=== PATIENT | female | born 1990 | race Caucasian/White ===

== ENCOUNTER 2017-09-19 19:58 | Inpatient (IN) | payer MEDICAID, OTHER ==
[2017-09-19] MEDS: KETOROLAC 15 MG INJ IV (21:28)
[2017-09-19] MEDS: ONDANSETRON 4 MG INJ IV (21:28)
[2017-09-19] MEDS: morphine 4 MG/ML VIAL IV (21:28)
[2017-09-19] MEDS: BELLADONNA/PHENOBARBITAL TAB PO (21:29)
[2017-09-19] MEDS: PANTOPRAZOLE 40 MG INJ IV (21:29)
[2017-09-19] MEDS: SOD CHLORIDE 0.9% 1,000 ML IV (21:38)
[2017-09-19 21:45] LABS: ADD MAN DIFF? NO
[2017-09-19 21:47] LABS: BASOPHIL # 0.1 10^3/ul (0.0-0.1); BASOPHILS % 0.4 % (0.0-2.0); EOSINOPHILS % 0.1 % (0.0-7.0); HEMATOCRIT 40.8 % (37.0-47.0); LYMPHOCYTES % 12.5 % (15.0-51.0); MEAN CORPUSCULAR HEMOGLOBIN 24.6 pg (29.0-33.0); MEAN CORPUSCULAR HGB CONC 31.9 g/dl (32.0-37.0); MEAN CORPUSCULAR VOLUME 77.1 fl (82.0-101.0); MEAN PLATELET VOLUME 10.4 fl (7.4-10.4); MONOCYTE # 0.9 10^3/ul (0.3-0.9); MONOCYTES % 5.9 % (0.0-11.0); NEUTROPHIL # 12.7 10^3/ul (1.6-7.5); NEUTROPHILS % 80.5 % (39.0-77.0); PLATELET COUNT 427 10^3/UL (140-415); RED BLOOD COUNT 5.29 10^6/ul (4.20-5.40); RED CELL DISTRIBUTION WIDTH 13.8 % (11.5-14.5)
[2017-09-19 21:47] LABS: WHITE BLOOD COUNT 15.8 10^3/ul (4.8-10.8)
[2017-09-19 22:01] LABS: ADD UMIC YES; UR ASCORBIC ACID NEGATIVE (NEGATIVE); UR BACTERIA FEW /HPF (NONE SEEN); UR BILIRUBIN (Dip) NEGATIVE (NEGATIVE); UR BLOOD (Dip) NEGATIVE (NEGATIVE); UR CLARITY SLIGHTLY CLOUDY (CLEAR); UR COLOR YELLOW (YELLOW); UR GLUCOSE (Dip) NEGATIVE (NEGATIVE); UR KETONES (Dip) 1+ mg/dL (NEGATIVE); UR LEUKOCYTE ESTERASE (Dip) NEGATIVE Leu/ul (NEGATIVE); UR MUCUS MODERATE /HPF (NONE SEEN); UR NITRITE (Dip) NEGATIVE (NEGATIVE); UR RBC 4 /HPF (0-5); UR SPECIFIC GRAVITY (Dip) 1.026 (1.003-1.030); UR SQUAMOUS EPITHELIAL CELL FEW /HPF (FEW); UR TOTAL PROTEIN (Dip) 1+ mg/dl (NEGATIVE); UR UROBILINOGEN (Dip) 1+ mg/dL (NEGATIVE); UR WBC 2 /HPF (0-5)
[2017-09-19 22:05] LABS: ALANINE AMINOTRANSFERASE 84 IU/L (13-69); ALBUMIN 4.7 g/dl (3.3-4.9); ALKALINE PHOSPHATASE 97 IU/L (42-121); ANION GAP 17 (8-16); ASPARTATE AMINO TRANSFERASE 171 IU/L (15-46); BILIRUBIN,INDIRECT 0.3 mg/dl (0-1.1); BILIRUBIN,TOTAL 0.3 mg/dl (0.2-1.3); BLOOD UREA NITROGEN 19 mg/dl (7-20); CALCIUM 9.6 mg/dl (8.4-10.2); CARBON DIOXIDE 22 mmol/L (21-31); CHLORIDE 107 mmol/L (97-110); GLUCOSE 131 mg/dl (70-220); POTASSIUM 3.3 mmol/L (3.5-5.1); SODIUM 143 mmol/L (135-144); TOTAL PROTEIN 8.3 g/dl (6.1-8.1)
[2017-09-19 22:25] LABS: LIPASE 3279 U/L (23-300)
[2017-09-19] MEDS: LACTATED RINGER'S 1,000 ML IV (23:04)
[2017-09-20] MEDS ORDERED: BISACODYL (EC) 5 MG TAB PO (06:00)
[2017-09-20] MEDS ORDERED: ONDANSETRON 4 MG INJ IV (06:00)
[2017-09-20] MEDS ORDERED: HYDROmorphONE 1 MG/ML SYG IV (06:00)
[2017-09-20] MEDS ORDERED: NACL 0.9% 3 ML SYG IV (06:00)
[2017-09-20] MEDS ORDERED: DOCUSATE SODIUM 100 MG CAP PO (06:00)
[2017-09-20] MEDS: SOD CHLORIDE 0.9% 1,000 ML IV ×5 (06:16→23:15)
[2017-09-20] MEDS ORDERED: HYDROmorphONE 0.5 MG/0.5 ML SYG IV (06:28)
[2017-09-20] MEDS: POTASSIUM CHLORIDE 40 MEQ in SOD CHLORIDE 0.9% 1,000 ML IV ×3 (08:43→18:12)
[2017-09-20 11:48] LABS: HAAIG REFLEX REFLEX FILED
[2017-09-20 12:42] LABS: HEPATITIS B SURFACE ANTIGEN NEGATIVE (NEGATIVE)
[2017-09-20 13:00] LABS: HEPATITIS B CORE ANTIBODY NEGATIVE (NEGATIVE); HEPATITIS C VIRAL ANTIBODY NEGATIVE (NEGATIVE)
[2017-09-20] MEDS: POTASSIUM CHLORIDE 100 ML IVPB (13:14)
[2017-09-21] MEDS: SOD CHLORIDE 0.9% 1,000 ML IV ×4 (04:09→20:15)
[2017-09-21 04:56] LABS: ADD MAN DIFF? NO
[2017-09-21 04:59] LABS: WHITE BLOOD COUNT 7.1 10^3/ul (4.8-10.8)
[2017-09-21 04:59] LABS: BASOPHIL # 0.1 10^3/ul (0.0-0.1); BASOPHILS % 0.7 % (0.0-2.0); EOSINOPHILS # 0.2 10^3/ul (0.0-0.5); EOSINOPHILS % 2.8 % (0.0-7.0); HEMATOCRIT 35.3 % (37.0-47.0); HEMOGLOBIN 10.9 g/dl (12.0-16.0); LYMPHOCYTES # 3.2 10^3/ul (0.8-2.9); LYMPHOCYTES % 44.4 % (15.0-51.0); MEAN CORPUSCULAR HEMOGLOBIN 24.3 pg (29.0-33.0); MEAN CORPUSCULAR HGB CONC 30.9 g/dl (32.0-37.0); MEAN CORPUSCULAR VOLUME 78.8 fl (82.0-101.0); MONOCYTE # 0.5 10^3/ul (0.3-0.9); MONOCYTES % 7.2 % (0.0-11.0); NEUTROPHIL # 3.2 10^3/ul (1.6-7.5); NEUTROPHILS % 44.5 % (39.0-77.0); PLATELET COUNT 342 10^3/UL (140-415); RED BLOOD COUNT 4.48 10^6/ul (4.20-5.40); RED CELL DISTRIBUTION WIDTH 14.2 % (11.5-14.5)
[2017-09-21 05:18] LABS: LIPASE 237 U/L (23-300)
[2017-09-21 05:26] LABS: ALBUMIN/GLOBULIN RATIO 1.06; ANION GAP 10 (8-16); BILIRUBIN,TOTAL 0.4 mg/dl (0.2-1.3); CHOL/HDL RATIO 3.1 RATIO; LDL CHOLESTEROL,CALCULATED 68 mg/dl
[2017-09-21 05:28] LABS: ALANINE AMINOTRANSFERASE 76 IU/L (13-69); ALBUMIN 3.3 g/dl (3.3-4.9); ALKALINE PHOSPHATASE 61 IU/L (42-121); ASPARTATE AMINO TRANSFERASE 30 IU/L (15-46); BILIRUBIN,INDIRECT 0.4 mg/dl (0-1.1); BLOOD UREA NITROGEN 8 mg/dl (7-20); CALCIUM 8.3 mg/dl (8.4-10.2); CARBON DIOXIDE 21 mmol/L (21-31); CHLORIDE 113 mmol/L (97-110); CHOLESTEROL 128 mg/dl (100-200); CREATININE 0.58 mg/dl (0.44-1.00); GLUCOSE 83 mg/dl (70-220); HDL CHOLESTEROL 41 mg/dl (33-83); MAGNESIUM 1.9 mg/dl (1.7-2.5); POTASSIUM 3.8 mmol/L (3.5-5.1); SODIUM 140 mmol/L (135-144); TOTAL PROTEIN 6.4 g/dl (6.1-8.1); TRIGLYCERIDES 97 mg/dl (0-149)
[2017-09-21 05:41] LABS: HEMOGLOBIN A1C 5.4 % (0-5.9)
[2017-09-21 06:09] LABS: THYROID STIMULATING HORMONE 0.964 MIU/L (0.465-4.680)
[2017-09-21] MEDS: PIPER-TAZO 3.375 GM IV (PMX) 100 ML IVPB (11:49)
[2017-09-21] MEDS: ACETAMINOPHEN 325 MG TAB PO (19:54)
[2017-09-22] MEDS: SOD CHLORIDE 0.9% 1,000 ML IV ×3 (02:49→13:00)
[2017-09-22 05:23] LABS: ADD MAN DIFF? NO
[2017-09-22 05:24] LABS: BASOPHIL # 0.1 10^3/ul (0.0-0.1); BASOPHILS % 0.7 % (0.0-2.0); EOSINOPHILS # 0.2 10^3/ul (0.0-0.5); EOSINOPHILS % 2.9 % (0.0-7.0); HEMOGLOBIN 11.6 g/dl (12.0-16.0); LYMPHOCYTES % 39.5 % (15.0-51.0); MEAN CORPUSCULAR HEMOGLOBIN 24.6 pg (29.0-33.0); MEAN CORPUSCULAR HGB CONC 31.4 g/dl (32.0-37.0); MEAN CORPUSCULAR VOLUME 78.4 fl (82.0-101.0); MEAN PLATELET VOLUME 10.2 fl (7.4-10.4); MONOCYTE # 0.6 10^3/ul (0.3-0.9); MONOCYTES % 7.3 % (0.0-11.0); NEUTROPHIL # 3.7 10^3/ul (1.6-7.5); NEUTROPHILS % 49.1 % (39.0-77.0); PLATELET COUNT 340 10^3/UL (140-415); RED BLOOD COUNT 4.72 10^6/ul (4.20-5.40); RED CELL DISTRIBUTION WIDTH 13.9 % (11.5-14.5)
[2017-09-22 05:24] LABS: WHITE BLOOD COUNT 7.5 10^3/ul (4.8-10.8)
[2017-09-22 05:56] LABS: ANION GAP 11 (8-16); BLOOD UREA NITROGEN 9 mg/dl (7-20); CALCIUM 8.4 mg/dl (8.4-10.2); CARBON DIOXIDE 21 mmol/L (21-31); CHLORIDE 113 mmol/L (97-110); CREATININE 0.56 mg/dl (0.44-1.00); GLUCOSE 87 mg/dl (70-220); LIPASE 196 U/L (23-300); POTASSIUM 3.8 mmol/L (3.5-5.1); SODIUM 141 mmol/L (135-144)
== END 2017-09-22 16:20 | disposition home or self-care (01) | DRG 439 ==
LOC: FTE 19:58 → MS3 09-20 03:59 → MS1 09-20 09:45
DX: K85.10 Biliary acute pancreatitis without necrosis or infection (principal); Z68.41 Body mass index [BMI] 40.0-44.9, adult; E66.01 Morbid (severe) obesity due to excess calories; K80.20 Calculus of gallbladder without cholecystitis without obstruction; D50.9 Iron deficiency anemia, unspecified
CPT/HCPCS: 36415; 74176; 74181; 76705; 80048; 80053; 80061; 81001; 81025; 83036; 83690; 83735; 84443; 85025; 86704; 86709; 86803; 87340; 96374; 96375; 99285-25

== ENCOUNTER → 2017-10-05 01:13 | Emergency (ER) | payer MEDICAID ==
[2017-10-04] MEDS: ONDANSETRON (ODT) 4 MG TAB ODT (23:33)
[2017-10-04] MEDS: LIDOCAINE/MYLANTA 40 ML BTL PO (23:33)
[2017-10-05 00:01] LABS: ADD MAN DIFF? NO
[2017-10-05 00:02] LABS: BASOPHIL # 0.1 10^3/ul (0.0-0.1); BASOPHILS % 0.5 % (0.0-2.0); EOSINOPHILS # 0.2 10^3/ul (0.0-0.5); EOSINOPHILS % 1.8 % (0.0-7.0); HEMATOCRIT 38.1 % (37.0-47.0); HEMOGLOBIN 11.7 g/dl (12.0-16.0); LYMPHOCYTES # 3.1 10^3/ul (0.8-2.9); LYMPHOCYTES % 28.1 % (15.0-51.0); MEAN CORPUSCULAR HEMOGLOBIN 24.1 pg (29.0-33.0); MEAN CORPUSCULAR HGB CONC 30.7 g/dl (32.0-37.0); MEAN CORPUSCULAR VOLUME 78.6 fl (82.0-101.0); MEAN PLATELET VOLUME 10.6 fl (7.4-10.4); MONOCYTE # 0.7 10^3/ul (0.3-0.9); MONOCYTES % 6.1 % (0.0-11.0); NEUTROPHILS % 63.1 % (39.0-77.0); PLATELET COUNT 345 10^3/UL (140-415); RED BLOOD COUNT 4.85 10^6/ul (4.20-5.40); RED CELL DISTRIBUTION WIDTH 14.1 % (11.5-14.5)
[2017-10-05 00:02] LABS: WHITE BLOOD COUNT 11.1 10^3/ul (4.8-10.8)
[2017-10-05 00:17] LABS: ADD UMIC YES; UR AMORPHOUS CRYSTAL FEW /HPF (NONE SEEN); UR ASCORBIC ACID NEGATIVE (NEGATIVE); UR BACTERIA FEW /HPF (NONE SEEN); UR BILIRUBIN (Dip) NEGATIVE (NEGATIVE); UR BLOOD (Dip) NEGATIVE (NEGATIVE); UR CLARITY CLOUDY (CLEAR); UR COLOR YELLOW (YELLOW); UR GLUCOSE (Dip) NEGATIVE (NEGATIVE); UR KETONES (Dip) NEGATIVE (NEGATIVE); UR LEUKOCYTE ESTERASE (Dip) TRACE Leu/ul (NEGATIVE); UR MUCUS FEW /HPF (NONE SEEN); UR NITRITE (Dip) NEGATIVE (NEGATIVE); UR RBC 3 /HPF (0-5); UR SPECIFIC GRAVITY (Dip) 1.024 (1.003-1.030); UR SQUAMOUS EPITHELIAL CELL FEW /HPF (FEW); UR TOTAL PROTEIN (Dip) NEGATIVE (NEGATIVE); UR UROBILINOGEN (Dip) NEGATIVE (NEGATIVE); UR WBC 6 /HPF (0-5)
[2017-10-05 00:28] LABS: ALANINE AMINOTRANSFERASE 39 IU/L (13-69); ALBUMIN 4.5 g/dl (3.3-4.9); ALKALINE PHOSPHATASE 69 IU/L (42-121); AMYLASE 81 U/L (11-123); ANION GAP 15 (8-16); ASPARTATE AMINO TRANSFERASE 39 IU/L (15-46); BILIRUBIN,INDIRECT 0.3 mg/dl (0-1.1); BILIRUBIN,TOTAL 0.3 mg/dl (0.2-1.3); BLOOD UREA NITROGEN 16 mg/dl (7-20); CALCIUM 9.6 mg/dl (8.4-10.2); CARBON DIOXIDE 24 mmol/L (21-31); CHLORIDE 108 mmol/L (97-110); CREATININE 0.61 mg/dl (0.44-1.00); GLUCOSE 98 mg/dl (70-220); LIPASE 188 U/L (23-300); POTASSIUM 3.8 mmol/L (3.5-5.1); SODIUM 143 mmol/L (135-144); TOTAL PROTEIN 7.7 g/dl (6.1-8.1)
== END | disposition home or self-care (01) ==
DX: K80.20 Calculus of gallbladder without cholecystitis without obstruction (principal); K80.50 Calculus of bile duct without cholangitis or cholecystitis without obstruction
CPT/HCPCS: 76705; 80053; 81001; 81025; 82150; 83690; 85025; 87086; 99284-25

== ENCOUNTER 2017-10-08 13:36 | Inpatient (IN) | payer MEDICAID ==
[2017-10-08] MEDS: HYDROmorphONE 1 MG/ML SYG IV ×2 (14:11→20:37)
[2017-10-08] MEDS: ONDANSETRON 4 MG INJ IV ×2 (14:11→20:36)
[2017-10-08] MEDS: SOD CHLORIDE 0.9% 1,000 ML IV (14:11)
[2017-10-08] MEDS: KETOROLAC 15 MG INJ IV ×2 (14:12→18:51)
[2017-10-08 14:25] LABS: ADD MAN DIFF? NO
[2017-10-08 14:34] LABS: WHITE BLOOD COUNT 22.6 10^3/ul (4.8-10.8)
[2017-10-08 14:34] LABS: BASOPHIL # 0.1 10^3/ul (0.0-0.1); BASOPHILS % 0.5 % (0.0-2.0); EOSINOPHILS # 0.2 10^3/ul (0.0-0.5); EOSINOPHILS % 0.9 % (0.0-7.0); HEMATOCRIT 42.8 % (37.0-47.0); HEMOGLOBIN 13.5 g/dl (12.0-16.0); LYMPHOCYTES # 3.9 10^3/ul (0.8-2.9); LYMPHOCYTES % 17.4 % (15.0-51.0); MEAN CORPUSCULAR HEMOGLOBIN 24.4 pg (29.0-33.0); MEAN CORPUSCULAR HGB CONC 31.5 g/dl (32.0-37.0); MEAN CORPUSCULAR VOLUME 77.3 fl (82.0-101.0); MEAN PLATELET VOLUME 10.1 fl (7.4-10.4); MONOCYTE # 1.2 10^3/ul (0.3-0.9); MONOCYTES % 5.4 % (0.0-11.0); NEUTROPHIL # 16.9 10^3/ul (1.6-7.5); PLATELET COUNT 383 10^3/UL (140-415); RED BLOOD COUNT 5.54 10^6/ul (4.20-5.40)
[2017-10-08 14:50] LABS: ALANINE AMINOTRANSFERASE 108 IU/L (13-69); ALBUMIN 4.6 g/dl (3.3-4.9); ALBUMIN/GLOBULIN RATIO 1.35; ALKALINE PHOSPHATASE 116 IU/L (42-121); ANION GAP 16 (8-16); ASPARTATE AMINO TRANSFERASE 160 IU/L (15-46); BILIRUBIN,INDIRECT 0.4 mg/dl (0-1.1); BILIRUBIN,TOTAL 0.4 mg/dl (0.2-1.3); BLOOD UREA NITROGEN 14 mg/dl (7-20); CALCIUM 9.5 mg/dl (8.4-10.2); CARBON DIOXIDE 20 mmol/L (21-31); CHLORIDE 111 mmol/L (97-110); CREATININE 0.63 mg/dl (0.44-1.00); GLUCOSE 154 mg/dl (70-220); POTASSIUM 3.7 mmol/L (3.5-5.1); SODIUM 143 mmol/L (135-144)
[2017-10-08 15:58] LABS: LIPASE 83536 U/L (23-300)
[2017-10-08] MEDS: HYDROmorphONE 2 MG/ML SYG IV (16:47)
[2017-10-08] MEDS: ONDANSETRON (ODT) 4 MG TAB ODT (16:47)
[2017-10-08] MEDS: MEROPENEM 1 GM/50ML(PMX) 50 ML IVPB ×2 (17:13→22:15)
[2017-10-08] MEDS: SOD CHLORIDE 0.45% 1,000 ML IV ×2 (17:23→20:29)
[2017-10-08] MEDS ORDERED: NACL 0.9% 3 ML SYG IV (17:30)
[2017-10-08] MEDS: morphine 2 MG INJ IV (18:51)
[2017-10-08] MEDS: METOCLOPRAMIDE 10 MG INJ IV (19:00)
[2017-10-09] MEDS: ONDANSETRON 4 MG INJ IV ×3 (00:27→10:29)
[2017-10-09] MEDS: HYDROmorphONE 1 MG/ML SYG IV ×6 (00:28→14:29)
[2017-10-09] MEDS: SOD CHLORIDE 0.45% 1,000 ML IV ×3 (05:35→23:05)
[2017-10-09 05:52] LABS: ADD MAN DIFF? NO
[2017-10-09 07:05] LABS: ALANINE AMINOTRANSFERASE 83 IU/L (13-69); ALBUMIN 4.1 g/dl (3.3-4.9); ALBUMIN/GLOBULIN RATIO 1.28; ALKALINE PHOSPHATASE 90 IU/L (42-121); ANION GAP 15 (8-16); ASPARTATE AMINO TRANSFERASE 45 IU/L (15-46); BILIRUBIN,INDIRECT 0.3 mg/dl (0-1.1); BILIRUBIN,TOTAL 0.3 mg/dl (0.2-1.3); BLOOD UREA NITROGEN 15 mg/dl (7-20); CALCIUM 8.6 mg/dl (8.4-10.2); CARBON DIOXIDE 19 mmol/L (21-31); CHLORIDE 112 mmol/L (97-110); CREATININE 0.57 mg/dl (0.44-1.00); GLUCOSE 189 mg/dl (70-220); POTASSIUM 3.9 mmol/L (3.5-5.1); SODIUM 142 mmol/L (135-144); TOTAL PROTEIN 7.3 g/dl (6.1-8.1)
[2017-10-09 07:17] LABS: BASOPHILS % 0.2 % (0.0-2.0); HEMATOCRIT 43.5 % (37.0-47.0); HEMOGLOBIN 13.6 g/dl (12.0-16.0); LYMPHOCYTES # 1.2 10^3/ul (0.8-2.9); LYMPHOCYTES % 7.2 % (15.0-51.0); MEAN CORPUSCULAR HEMOGLOBIN 24.3 pg (29.0-33.0); MEAN CORPUSCULAR HGB CONC 31.3 g/dl (32.0-37.0); MEAN CORPUSCULAR VOLUME 77.7 fl (82.0-101.0); MEAN PLATELET VOLUME 10.1 fl (7.4-10.4); MONOCYTE # 0.8 10^3/ul (0.3-0.9); NEUTROPHIL # 14.2 10^3/ul (1.6-7.5); PLATELET COUNT 369 10^3/UL (140-415); RED CELL DISTRIBUTION WIDTH 14.2 % (11.5-14.5)
[2017-10-09 07:17] LABS: WHITE BLOOD COUNT 16.3 10^3/ul (4.8-10.8)
[2017-10-09] MEDS: MEROPENEM 1 GM/50ML(PMX) 50 ML IVPB (09:27)
[2017-10-09 10:14] LABS: LIPASE 5624 U/L (23-300)
[2017-10-09] MEDS ORDERED: HYDROmorphONE 1 MG/ML SYG IV (12:00)
[2017-10-09 12:15] LABS: HEMOGLOBIN A1C 5.8 % (0-5.9)
[2017-10-09] MEDS ORDERED: DIPHENHYDRAMINE 50 MG INJ IV (13:30)
[2017-10-09] MEDS: ACETAMINOPHEN 1000MG/100ML IV 100 ML IVPB ×2 (14:29→18:46)
[2017-10-09] MEDS: HYDROmorphONE 0.2 MG/ML PCA IV ×2 (15:40→21:55)
[2017-10-09] MEDS: PIPER-TAZO 3.375 GM IV (PMX) 100 ML IVPB ×2 (17:15→23:39)
[2017-10-10] MEDS: ACETAMINOPHEN 1000MG/100ML IV 100 ML IVPB ×4 (01:14→18:14)
[2017-10-10] MEDS: SOD CHLORIDE 0.9% 500 ML IV (01:44)
[2017-10-10] MEDS: HYDROmorphONE 0.2 MG/ML PCA IV ×4 (03:22→20:56)
[2017-10-10 05:27] LABS: ADD MAN DIFF? NO
[2017-10-10 05:35] LABS: WHITE BLOOD COUNT 21.5 10^3/ul (4.8-10.8)
[2017-10-10 05:35] LABS: ABNORMAL IP MESSAGE 1; BASOPHIL # 0.1 10^3/ul (0.0-0.1); BASOPHILS % 0.2 % (0.0-2.0); EOSINOPHILS % 0.1 % (0.0-7.0); HEMATOCRIT 43.1 % (37.0-47.0); HEMOGLOBIN 13.4 g/dl (12.0-16.0); LYMPHOCYTES # 1.8 10^3/ul (0.8-2.9); LYMPHOCYTES % 8.5 % (15.0-51.0); MEAN CORPUSCULAR HEMOGLOBIN 24.6 pg (29.0-33.0); MEAN CORPUSCULAR HGB CONC 31.1 g/dl (32.0-37.0); MEAN CORPUSCULAR VOLUME 79.2 fl (82.0-101.0); MEAN PLATELET VOLUME 10.5 fl (7.4-10.4); MONOCYTE # 1.5 10^3/ul (0.3-0.9); MONOCYTES % 7.2 % (0.0-11.0); NEUTROPHIL # 17.9 10^3/ul (1.6-7.5); NEUTROPHILS % 83.3 % (39.0-77.0); PLATELET COUNT 334 10^3/UL (140-415); RED BLOOD COUNT 5.44 10^6/ul (4.20-5.40); RED CELL DISTRIBUTION WIDTH 14.6 % (11.5-14.5)
[2017-10-10 05:56] LABS: POSITIVE DIFF @See below
[2017-10-10] MEDS: PIPER-TAZO 3.375 GM IV (PMX) 100 ML IVPB ×2 (06:12→12:34)
[2017-10-10 06:14] LABS: ADD UMIC YES; UR ASCORBIC ACID NEGATIVE (NEGATIVE); UR BACTERIA FEW /HPF (NONE SEEN); UR BILIRUBIN (Dip) NEGATIVE (NEGATIVE); UR BLOOD (Dip) NEGATIVE (NEGATIVE); UR CLARITY CLOUDY (CLEAR); UR COLOR AMBER (YELLOW); UR GLUCOSE (Dip) 1+ mg/dL (NEGATIVE); UR KETONES (Dip) TRACE mg/dL (NEGATIVE); UR LEUKOCYTE ESTERASE (Dip) NEGATIVE Leu/ul (NEGATIVE); UR NITRITE (Dip) NEGATIVE (NEGATIVE); UR RBC 6 /HPF (0-5); UR SPECIFIC GRAVITY (Dip) 1.051 (1.003-1.030); UR SQUAMOUS EPITHELIAL CELL MANY /HPF (FEW); UR TOTAL PROTEIN (Dip) 1+ mg/dl (NEGATIVE); UR UROBILINOGEN (Dip) NEGATIVE (NEGATIVE); UR WBC 1 /HPF (0-5)
[2017-10-10 06:23] LABS: ALANINE AMINOTRANSFERASE 45 IU/L (13-69); ALBUMIN 3.2 g/dl (3.3-4.9); ALBUMIN/GLOBULIN RATIO 1.06; ALKALINE PHOSPHATASE 69 IU/L (42-121); ANION GAP 14 (8-16); ASPARTATE AMINO TRANSFERASE 32 IU/L (15-46); BILIRUBIN,INDIRECT 0.7 mg/dl (0-1.1); BILIRUBIN,TOTAL 0.7 mg/dl (0.2-1.3); BLOOD UREA NITROGEN 12 mg/dl (7-20); CALCIUM 7.9 mg/dl (8.4-10.2); CARBON DIOXIDE 23 mmol/L (21-31); CHLORIDE 105 mmol/L (97-110); CREATININE 0.65 mg/dl (0.44-1.00); GLUCOSE 115 mg/dl (70-220); SODIUM 138 mmol/L (135-144); TOTAL PROTEIN 6.2 g/dl (6.1-8.1)
[2017-10-10 06:31] LABS: LIPASE 3270 U/L (23-300)
[2017-10-10] MEDS: SOD CHLORIDE 0.45% 1,000 ML IV ×2 (07:31→18:13)
[2017-10-10] MEDS: HYDROmorphONE 2 MG/ML SYG IV (14:39)
[2017-10-11] MEDS: ACETAMINOPHEN 1000MG/100ML IV 100 ML IVPB ×4 (02:00→21:09)
[2017-10-11] MEDS: HYDROmorphONE 0.2 MG/ML PCA IV ×3 (03:03→15:49)
[2017-10-11] MEDS: SOD CHLORIDE 0.45% 1,000 ML IV (04:30)
[2017-10-11 05:41] LABS: ADD MAN DIFF? NO
[2017-10-11 05:45] LABS: ABNORMAL IP MESSAGE 1; BASOPHIL # 0.1 10^3/ul (0.0-0.1); BASOPHILS % 0.3 % (0.0-2.0); EOSINOPHILS # 0.1 10^3/ul (0.0-0.5); EOSINOPHILS % 0.4 % (0.0-7.0); HEMATOCRIT 38.2 % (37.0-47.0); LYMPHOCYTES # 1.9 10^3/ul (0.8-2.9); LYMPHOCYTES % 9.2 % (15.0-51.0); MEAN CORPUSCULAR HEMOGLOBIN 24.6 pg (29.0-33.0); MEAN CORPUSCULAR HGB CONC 31.4 g/dl (32.0-37.0); MEAN CORPUSCULAR VOLUME 78.4 fl (82.0-101.0); MEAN PLATELET VOLUME 10.5 fl (7.4-10.4); MONOCYTE # 1.8 10^3/ul (0.3-0.9); NEUTROPHILS % 79.2 % (39.0-77.0); PLATELET COUNT 288 10^3/UL (140-415); RED BLOOD COUNT 4.87 10^6/ul (4.20-5.40); RED CELL DISTRIBUTION WIDTH 14.1 % (11.5-14.5)
[2017-10-11 05:45] LABS: WHITE BLOOD COUNT 20.3 10^3/ul (4.8-10.8)
[2017-10-11 06:07] LABS: ALANINE AMINOTRANSFERASE 35 IU/L (13-69); ALBUMIN 2.9 g/dl (3.3-4.9); ALBUMIN/GLOBULIN RATIO 1.03; ALKALINE PHOSPHATASE 72 IU/L (42-121); ANION GAP 11 (8-16); ASPARTATE AMINO TRANSFERASE 19 IU/L (15-46); BILIRUBIN,INDIRECT 0.6 mg/dl (0-1.1); BILIRUBIN,TOTAL 0.6 mg/dl (0.2-1.3); BLOOD UREA NITROGEN 8 mg/dl (7-20); CALCIUM 7.9 mg/dl (8.4-10.2); CARBON DIOXIDE 24 mmol/L (21-31); CHLORIDE 101 mmol/L (97-110); CREATININE 0.51 mg/dl (0.44-1.00); GLUCOSE 107 mg/dl (70-220); LIPASE 879 U/L (23-300); POTASSIUM 3.6 mmol/L (3.5-5.1); SODIUM 132 mmol/L (135-144); TOTAL PROTEIN 5.7 g/dl (6.1-8.1)
[2017-10-11 06:23] LABS: POSITIVE DIFF @See below
[2017-10-11] MEDS: ONDANSETRON 4 MG INJ IV (22:23)
[2017-10-12] MEDS: HYDROmorphONE 2 MG/ML SYG IV ×2 (00:22→05:44)
[2017-10-12] MEDS: HYDROmorphONE 0.2 MG/ML PCA IV ×3 (01:20→17:53)
[2017-10-12] MEDS: ACETAMINOPHEN 1000MG/100ML IV 100 ML IVPB ×4 (02:20→20:23)
[2017-10-13] MEDS: ACETAMINOPHEN 1000MG/100ML IV 100 ML IVPB ×4 (02:22→20:18)
[2017-10-13] MEDS: HYDROmorphONE 0.2 MG/ML PCA IV ×2 (03:44→15:41)
[2017-10-13 05:27] LABS: ADD MAN DIFF? NO
[2017-10-13 05:30] LABS: BASOPHIL # 0.1 10^3/ul (0.0-0.1); BASOPHILS % 0.6 % (0.0-2.0); EOSINOPHILS # 0.1 10^3/ul (0.0-0.5); EOSINOPHILS % 0.6 % (0.0-7.0); HEMATOCRIT 31.3 % (37.0-47.0); HEMOGLOBIN 10.2 g/dl (12.0-16.0); IMMATURE GRANS #M 0.56 10^3/ul; LYMPHOCYTES % 7.5 % (15.0-51.0); MEAN CORPUSCULAR HEMOGLOBIN 25.2 pg (29.0-33.0); MEAN CORPUSCULAR HGB CONC 32.6 g/dl (32.0-37.0); MEAN CORPUSCULAR VOLUME 77.3 fl (82.0-101.0); MEAN PLATELET VOLUME 9.7 fl (7.4-10.4); MONOCYTE # 1.4 10^3/ul (0.3-0.9); NEUTROPHIL # 10.7 10^3/ul (1.6-7.5); NEUTROPHILS % 77.3 % (39.0-77.0); PLATELET COUNT 337 10^3/UL (140-415); RED BLOOD COUNT 4.05 10^6/ul (4.20-5.40); RED CELL DISTRIBUTION WIDTH 13.8 % (11.5-14.5)
[2017-10-13 05:30] LABS: WHITE BLOOD COUNT 13.9 10^3/ul (4.8-10.8)
[2017-10-13 05:58] LABS: ANION GAP 12 (8-16); BLOOD UREA NITROGEN 3 mg/dl (7-20); CALCIUM 7.8 mg/dl (8.4-10.2); CARBON DIOXIDE 24 mmol/L (21-31); CHLORIDE 102 mmol/L (97-110); CREATININE 0.51 mg/dl (0.44-1.00); GLUCOSE 96 mg/dl (70-220); LIPASE 61 U/L (23-300); SODIUM 135 mmol/L (135-144)
[2017-10-13 06:14] LABS: POTASSIUM 2.9 mmol/L (3.5-5.1)
[2017-10-13] MEDS: POTASSIUM CHLORIDE (SR) 20 MEQ TAB PO ×4 (06:30→23:43)
[2017-10-13] MEDS: SOD CHLORIDE 0.45% 1,000 ML IV ×2 (14:10→23:41)
[2017-10-13 16:22] LABS: POTASSIUM 3.2 mmol/L (3.5-5.1)
[2017-10-13] MEDS: POTASSIUM CHLORIDE 100 ML IVPB ×3 (20:33→23:39)
[2017-10-14] MEDS: ACETAMINOPHEN 1000MG/100ML IV 100 ML IVPB ×4 (01:15→21:14)
[2017-10-14] MEDS: HYDROmorphONE 0.2 MG/ML PCA IV ×3 (02:03→23:26)
[2017-10-14 05:31] LABS: LIPASE 52 U/L (23-300)
[2017-10-14] MEDS: SOD CHLORIDE 0.45% 1,000 ML IV ×3 (06:19→16:37)
[2017-10-14 09:54] LABS: POTASSIUM 3.8 mmol/L (3.5-5.1)
[2017-10-14 10:11] LABS: ANION GAP 19 (8-16); BLOOD UREA NITROGEN 2 mg/dl (7-20); CALCIUM 8.2 mg/dl (8.4-10.2); CARBON DIOXIDE 19 mmol/L (21-31); CHLORIDE 106 mmol/L (97-110); CREATININE 0.37 mg/dl (0.44-1.00); GLUCOSE 87 mg/dl (70-220); POTASSIUM 3.8 mmol/L (3.5-5.1); SODIUM 140 mmol/L (135-144)
[2017-10-15] MEDS: ACETAMINOPHEN 1000MG/100ML IV 100 ML IVPB ×4 (01:16→19:50)
[2017-10-15] MEDS: SOD CHLORIDE 0.45% 1,000 ML IV ×3 (01:18→19:50)
[2017-10-15] MEDS ORDERED: CEFAZOLIN 1 GM INJ (07:00)
[2017-10-15] MEDS: HYDROmorphONE 0.2 MG/ML PCA IV (11:14)
[2017-10-15 11:50] LABS: INR 1.29; PROTIME 16.3 Sec (11.9-14.9); PT RATIO 1.3
[2017-10-15 11:51] LABS: PARTIAL THROMBOPLASTIN TIME 42.7 Sec (25.0-35.0)
[2017-10-15 12:12] LABS: LIPASE 69 U/L (23-300)
[2017-10-15] MEDS ORDERED: LIDOCAINE 1% (MPF) 30 ML INJ (15:20)
[2017-10-15] MEDS ORDERED: PROPOFOL 20 ML (15:22)
[2017-10-15] MEDS ORDERED: ROCURONIUM 50 MG INJ ×2 (15:22→16:52)
[2017-10-15] MEDS ORDERED: MIDAZOLAM 1 MG/ML 2 ML INJ (15:22)
[2017-10-15] MEDS ORDERED: METOCLOPRAMIDE 10 MG INJ (15:22)
[2017-10-15] MEDS ORDERED: KETOROLAC 30 MG INJ (15:22)
[2017-10-15] MEDS ORDERED: NEOSTIGMINE 3 MG/3 ML SYRINGE (15:22)
[2017-10-15] MEDS ORDERED: ONDANSETRON 4 MG INJ (15:22)
[2017-10-15] MEDS ORDERED: GLYCOPYRROLATE 0.4 MG INJ (15:22)
[2017-10-15] MEDS ORDERED: ROPIVACAINE 0.5 % 30 ML VIAL (15:25)
[2017-10-15] MEDS ORDERED: BUPIVACAINE 0.25%/EPI (MDV) 50 ML VIAL INJ (15:26)
[2017-10-15] MEDS ORDERED: FENTAnyl 50 MCG/ML VIAL (16:18)
[2017-10-15] MEDS ORDERED: hydrALAzine 20 MG INJ IV (16:30)
[2017-10-15] MEDS ORDERED: LABETALOL HCL 20MG INJ IV (16:30)
[2017-10-15] MEDS ORDERED: DIPHENHYDRAMINE 50 MG INJ IV (16:30)
[2017-10-15] MEDS ORDERED: MEPERIDINE 25 MG INJ IV (16:30)
[2017-10-15] MEDS ORDERED: ONDANSETRON 4 MG INJ IV (16:30)
[2017-10-15] MEDS ORDERED: HYDROmorphONE 1 MG/5 ML IV SYRINGE IV (16:30)
[2017-10-15] MEDS ORDERED: KETOROLAC 30 MG INJ IV (16:30)
[2017-10-15] MEDS: MIDAZOLAM 1 MG/ML 2 ML INJ IV (17:32)
[2017-10-15] MEDS: HYDROmorphONE 1 MG/5 ML IV SYRINGE IV ×3 (17:33→17:57)
[2017-10-15 17:50] LABS: ABNORMAL IP MESSAGE 1; HEMATOCRIT 31.4 % (37.0-47.0); HEMOGLOBIN 10.1 g/dl (12.0-16.0); IMMATURE GRANS #M 3.56 10^3/ul; IMMATURE GRANS % (M) 15.9 %; MEAN CORPUSCULAR HEMOGLOBIN 24.9 pg (29.0-33.0); MEAN CORPUSCULAR HGB CONC 32.2 g/dl (32.0-37.0); MEAN CORPUSCULAR VOLUME 77.5 fl (82.0-101.0); MEAN PLATELET VOLUME 8.7 fl (7.4-10.4); PLATELET COUNT 439 10^3/UL (140-415); RED BLOOD COUNT 4.05 10^6/ul (4.20-5.40); RED CELL DISTRIBUTION WIDTH 14.1 % (11.5-14.5)
[2017-10-15 17:50] LABS: WHITE BLOOD COUNT 22.5 10^3/ul (4.8-10.8)
[2017-10-15 18:12] LABS: POSITIVE DIFF @See below
[2017-10-15 18:13] LABS: ADD MAN DIFF? YES
[2017-10-15 18:57] LABS: BAND NEUTROPHILS #M 2.7 10^3/ul (0.0-0.6); BAND NEUTROPHILS % (M) 12 % (0-4); BASOPHIL #M 0.2 10^3/ul (0.0-0.0); BASOPHILS % (M) 1 % (0-2); EOSINOPHILS % (M) 1 % (0-7); GIANT THROMBO% (M) 1 % (0-0); LYMPHOCYTES #M 1.5 10^3/ul (0.8-2.9); LYMPHOCYTES % (M) 7 % (15-51); METAMYELOCYTES #M 0.4 10^3/ul (0.0-0.0); METAMYELOCYTES %M 2 % (0-0); MONOCYTE #M 0.9 10^3/ul (0.3-0.9); MONOCYTES % (M) 4 % (0-11); MYELOCYTES #M 0.9 10^3/ul (0.0-0.0); MYELOCYTES % (M) 4 % (0-0); PLATELET ESTIMATE INCREASED; PROMYELOCYTES #M 0.4 10^3/ul (0-0); PROMYELOCYTES % (M) 2 % (0-0); SEG NEUT #M 15.7 10^3/ul (1.6-7.5); SEGMENTED NEUTROPHILS (M) % 67 % (39-77); SMUDGE%M 20 % (0-0)
[2017-10-15] MEDS: FAMOTIDINE 20 MG INJ IV (21:43)
[2017-10-16] MEDS: ACETAMINOPHEN 1000MG/100ML IV 100 ML IVPB ×2 (01:04→08:25)
[2017-10-16] MEDS: SOD CHLORIDE 0.45% 1,000 ML IV ×2 (01:04→08:35)
[2017-10-16] MEDS: HYDROmorphONE 2 MG/ML SYG IV ×2 (03:10→06:16)
[2017-10-16 05:31] LABS: WHITE BLOOD COUNT 22.4 10^3/ul (4.8-10.8)
[2017-10-16 05:31] LABS: ABNORMAL IP MESSAGE 1; HEMATOCRIT 29.5 % (37.0-47.0); HEMOGLOBIN 9.7 g/dl (12.0-16.0); IMMATURE GRANS #M 2.81 10^3/ul; IMMATURE GRANS % (M) 12.6 %; MEAN CORPUSCULAR HEMOGLOBIN 25.1 pg (29.0-33.0); MEAN CORPUSCULAR HGB CONC 32.9 g/dl (32.0-37.0); MEAN CORPUSCULAR VOLUME 76.2 fl (82.0-101.0); MEAN PLATELET VOLUME 9.3 fl (7.4-10.4); PLATELET COUNT 511 10^3/UL (140-415); RED BLOOD COUNT 3.87 10^6/ul (4.20-5.40); RED CELL DISTRIBUTION WIDTH 14.3 % (11.5-14.5)
[2017-10-16 06:10] LABS: ANION GAP 17 (8-16); BLOOD UREA NITROGEN 2 mg/dl (7-20); CALCIUM 8.3 mg/dl (8.4-10.2); CARBON DIOXIDE 17 mmol/L (21-31); CHLORIDE 108 mmol/L (97-110); CREATININE 0.41 mg/dl (0.44-1.00); GLUCOSE 96 mg/dl (70-220); MAGNESIUM 1.8 mg/dl (1.7-2.5); POTASSIUM 3.3 mmol/L (3.5-5.1); SODIUM 139 mmol/L (135-144)
[2017-10-16 06:25] LABS: POSITIVE DIFF @See below
[2017-10-16 06:26] LABS: ADD MAN DIFF? YES
[2017-10-16] MEDS: FAMOTIDINE 20 MG INJ IV ×2 (08:25→22:26)
[2017-10-16 09:38] LABS: BAND NEUTROPHILS #M 3.3 10^3/ul (0.0-0.6); BAND NEUTROPHILS % (M) 15 % (0-4); LYMPHOCYTES #M 1.1 10^3/ul (0.8-2.9); LYMPHOCYTES % (M) 5 % (15-51); MONOCYTE #M 2.2 10^3/ul (0.3-0.9); MONOCYTES % (M) 10 % (0-11); MYELOCYTES #M 0.2 10^3/ul (0.0-0.0); MYELOCYTES % (M) 1 % (0-0); PLATELET ESTIMATE NORMAL; SEG NEUT #M 16.2 10^3/ul (1.6-7.5); SEGMENTED NEUTROPHILS (M) % 69 % (39-77); SMUDGE%M 9 % (0-0)
[2017-10-16] MEDS: HYDROCODONE/APAP (5/325) TAB PO ×2 (12:29→16:26)
[2017-10-16] MEDS: POTASSIUM CHLORIDE (SR) 20 MEQ TAB PO (13:42)
[2017-10-16] MEDS ORDERED: ACETAMINOPHEN 325 MG TAB PO (15:30)
[2017-10-16] MEDS: METOCLOPRAMIDE 10 MG INJ IV ×2 (17:41→23:43)
[2017-10-16] MEDS: ONDANSETRON 4 MG INJ IV (22:26)
[2017-10-16] MEDS ORDERED: ACETAMINOPHEN 650 MG SUPP PR (23:30)
[2017-10-16] MEDS: CEFTRIAXONE 1 GM/50 ML (PMX) 50 ML IVPB (23:42)
[2017-10-16] MEDS: SOD CHLORIDE 0.9% 1,000 ML IV (23:43)
[2017-10-17] MEDS: METOCLOPRAMIDE 10 MG INJ IV (05:45)
[2017-10-17 06:05] LABS: ABNORMAL IP MESSAGE 1; HEMOGLOBIN 9.6 g/dl (12.0-16.0); IMMATURE GRANS % (M) 11.2 %; MEAN CORPUSCULAR HEMOGLOBIN 24.7 pg (29.0-33.0); MEAN CORPUSCULAR VOLUME 77.1 fl (82.0-101.0); MEAN PLATELET VOLUME 9.1 fl (7.4-10.4); PLATELET COUNT 564 10^3/UL (140-415); RED BLOOD COUNT 3.89 10^6/ul (4.20-5.40); RED CELL DISTRIBUTION WIDTH 14.2 % (11.5-14.5)
[2017-10-17 06:05] LABS: WHITE BLOOD COUNT 17.9 10^3/ul (4.8-10.8)
[2017-10-17 06:17] LABS: ADD MAN DIFF? YES; POSITIVE DIFF @See below
[2017-10-17 06:30] LABS: ANION GAP 15 (8-16); BLOOD UREA NITROGEN 2 mg/dl (7-20); CALCIUM 8.4 mg/dl (8.4-10.2); CARBON DIOXIDE 24 mmol/L (21-31); CHLORIDE 106 mmol/L (97-110); CREATININE 0.43 mg/dl (0.44-1.00); GLUCOSE 105 mg/dl (70-220); SODIUM 142 mmol/L (135-144)
[2017-10-17] MEDS: SOD CHLORIDE 0.9% 1,000 ML IV ×3 (06:37→23:31)
[2017-10-17 06:41] LABS: POTASSIUM 2.8 mmol/L (3.5-5.1)
[2017-10-17 08:10] LABS: ANISOCYTOSIS 1+ (0-0); BAND NEUTROPHILS #M 4.4 10^3/ul (0.0-0.6); BAND NEUTROPHILS % (M) 25 % (0-4); LYMPHOCYTES #M 1.6 10^3/ul (0.8-2.9); LYMPHOCYTES % (M) 9 % (15-51); METAMYELOCYTES #M 0.3 10^3/ul (0.0-0.0); METAMYELOCYTES %M 2 % (0-0); MONOCYTE #M 0.3 10^3/ul (0.3-0.9); MONOCYTES % (M) 2 % (0-11); MYELOCYTES #M 1.2 10^3/ul (0.0-0.0); MYELOCYTES % (M) 7 % (0-0); PLATELET ESTIMATE INCREASED; SEG NEUT #M 10.6 10^3/ul (1.6-7.5); SEGMENTED NEUTROPHILS (M) % 55 % (39-77); SMUDGE%M 9 % (0-0)
[2017-10-17] MEDS: FAMOTIDINE 20 MG INJ IV ×2 (08:42→22:02)
[2017-10-17] MEDS: POTASSIUM CHLORIDE 100 ML IVPB ×3 (10:32→14:07)
[2017-10-17] MEDS: ONDANSETRON 4 MG INJ IV ×3 (10:36→23:33)
[2017-10-17] MEDS: LOPERAMIDE HCL 1 MG/5 ML LIQUID (10 ML UD CUP) PO (19:02)
[2017-10-17] MEDS: CEFTRIAXONE 1 GM/50 ML (PMX) 50 ML IVPB (23:31)
[2017-10-18 06:01] LABS: WHITE BLOOD COUNT 15.2 10^3/ul (4.8-10.8)
[2017-10-18 06:01] LABS: ABNORMAL IP MESSAGE 1; HEMATOCRIT 28.3 % (37.0-47.0); HEMOGLOBIN 9.1 g/dl (12.0-16.0); MEAN CORPUSCULAR HEMOGLOBIN 24.6 pg (29.0-33.0); MEAN CORPUSCULAR HGB CONC 32.2 g/dl (32.0-37.0); MEAN CORPUSCULAR VOLUME 76.5 fl (82.0-101.0); PLATELET COUNT 528 10^3/UL (140-415); RED CELL DISTRIBUTION WIDTH 14.4 % (11.5-14.5)
[2017-10-18 06:09] LABS: ADD MAN DIFF? YES; POSITIVE DIFF @See below
[2017-10-18 06:30] LABS: ANION GAP 14 (8-16); BLOOD UREA NITROGEN 5 mg/dl (7-20); CALCIUM 8.3 mg/dl (8.4-10.2); CARBON DIOXIDE 24 mmol/L (21-31); CHLORIDE 108 mmol/L (97-110); CREATININE 0.46 mg/dl (0.44-1.00); GLUCOSE 100 mg/dl (70-220); POTASSIUM 3.2 mmol/L (3.5-5.1); SODIUM 143 mmol/L (135-144)
[2017-10-18] MEDS: POTASSIUM CHLORIDE (SR) 20 MEQ TAB PO (07:11)
[2017-10-18] MEDS: ONDANSETRON 4 MG INJ IV (07:12)
[2017-10-18] MEDS: SOD CHLORIDE 0.9% 1,000 ML IV ×2 (07:13→15:30)
[2017-10-18 07:14] LABS: BAND NEUTROPHILS #M 1.2 10^3/ul (0.0-0.6); BAND NEUTROPHILS % (M) 8 % (0-4); EOSINOPHILS % (M) 1 % (0-7); ERYTHROBLAST% (NRBC) (M) 1 % (0-0); LYMPHOCYTES #M 2.5 10^3/ul (0.8-2.9); LYMPHOCYTES % (M) 17 % (15-51); METAMYELOCYTES #M 0.1 10^3/ul (0.0-0.0); METAMYELOCYTES %M 1 % (0-0); MONOCYTE #M 0.7 10^3/ul (0.3-0.9); MONOCYTES % (M) 5 % (0-11); MYELOCYTES #M 0.7 10^3/ul (0.0-0.0); MYELOCYTES % (M) 5 % (0-0); PLATELET ESTIMATE INCREASED; PROMYELOCYTES #M 0.1 10^3/ul (0-0); PROMYELOCYTES % (M) 1 % (0-0); REACTIVE LYMPHOCYTES #M 0.1 10^3/ul (0.0-0.0); REACTIVE LYMPHOCYTES% (M) 1 % (0-0); SEG NEUT #M 9.5 10^3/ul (1.6-7.5); SEGMENTED NEUTROPHILS (M) % 61 % (39-77); SMUDGE%M 5 % (0-0)
[2017-10-18] MEDS: FAMOTIDINE 20 MG INJ IV (09:11)
[2017-10-18] MEDS: METOCLOPRAMIDE 10 MG INJ IV (12:00)
== END 2017-10-18 15:35 | disposition home or self-care (01) | DRG 417 ==
LOC: MS1 10-17 04:53 → FTE 13:36 → MS1 16:33
PROC: 0FT44ZZ Resection of Gallbladder, Percutaneous Endoscopic Approach (ICD-10-PCS; principal; 2017-10-15 15:42)
DX: K85.10 Biliary acute pancreatitis without necrosis or infection (principal); J18.9 Pneumonia, unspecified organism; K52.1 Toxic gastroenteritis and colitis; K80.20 Calculus of gallbladder without cholecystitis without obstruction; E66.01 Morbid (severe) obesity due to excess calories; Z68.38 Body mass index [BMI] 38.0-38.9, adult; T45.0X5A Adverse effect of antiallergic and antiemetic drugs, initial encounter; Y92.238 Other place in hospital as the place of occurrence of the external cause
CPT/HCPCS: 71045; 74181; 76705; 80048; 80053; 81001; 81025; 82962; 83036; 83605; 83690; 83735; 84132; 84703; 85025; 85610; 85730; 86850; 86900; 86901; 87040; 87075; 88304; 93005; 96361; 96374; 96375; 99285-25